=== PATIENT | male | born 1980 | race Caucasian/White ===

== ENCOUNTER 2021-02-24 13:51 | Outpatient (CLI) | payer OTHER, SELFPAY ==
[2021-02-24 16:32] LABS: Prostate Specific Antigen 0.5 ng/mL (< OR = 4.0)
== END 2021-02-24 13:52 | disposition home or self-care (01) ==
PROVIDERS: PCP Family Medicine; Visit Provider Family Medicine
DX: Z12.5 Encounter for screening for malignant neoplasm of prostate (principal)
CPT/HCPCS: 36415; 84153

== ENCOUNTER 2021-05-14 10:33 | Outpatient (CLI) | payer OTHER, SELFPAY ==
[2021-05-14 11:42] LABS: Iron 119 ug/dL (49-181)
[2021-05-14 11:51] LABS: Percent Iron Saturation 37 % (20-50)
== END 2021-05-14 10:34 | disposition home or self-care (01) ==
LOC: ANHLAB 10:39
DX: I42.1 Obstructive hypertrophic cardiomyopathy (principal)
CPT/HCPCS: 36415; 82728; 83540; 83550

== ENCOUNTER 2021-10-03 10:22 | Outpatient (CLI) | payer OTHER, SELFPAY ==
--- NOTE | ~2021-10-03 | MR_ITS ---
EXAMINATION: MR brain/brain stem wo/w con DATE: 10/03/2021 11:34 INDICATION: Frequent headaches. TECHNIQUE: Magnetic resonance imaging (MRI) of the brain and brainstem was performed without and with 20 mL MultiHance intravenous contrast. Sequences included sagittal and axial T1-weighted FSE, axial diffusion-weighted FS EPI, axial T2*-weighted GRE, axial T2-weighted FLAIR Propeller, and axial T2-we ighted Propeller. Postcontrast sequences included axial and coronal T1-weighted FSE. Apparent diffusi on coefficient (ADC) maps were created. COMPARISON: None. FINDINGS: There is no intracranial hemorrhage, acute infarction, or abnormal intracranial mass lesion . The ventricles are normal in size. There is mild mucosal thickening in the paranasal sinuses. The o rbits are normal. The mastoid air cells are normal. IMPRESSION: 1. Normal brain. Reviewed, dictated and finalized at location E. IMPRESSION: 1. Normal brain.
[2021-10-03 11:05] LABS: Estimated Glomerular Filt Rate > 60
== END 2021-10-03 10:23 | disposition home or self-care (01) ==
LOC: ANHIMG 10:29
PROVIDERS: Visit Provider Internal Medicine
DX: R51.9 Headache, unspecified (principal)
CPT/HCPCS: 70553; A9577